=== PATIENT | female | born 1985 | race American Indian/Alaskan Native ===

== ENCOUNTER 2019-04-17 11:23 | Emergency (ER) | payer MEDICAID, OTHER ==
[2019-04-17 12:00] VITALS: BP 129/82
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
== END 2019-04-17 14:00 | disposition home or self-care (01) ==
LOC: ED 11:23
DX: M54.2 Cervicalgia (principal); M54.9 Dorsalgia, unspecified; Z79.899 Other long term (current) drug therapy; V49.59XA Passenger injured in collision with other motor vehicles in traffic accident, initial encounter; Y93.89 Activity, other specified; Y92.410 Unspecified street and highway as the place of occurrence of the external cause; Y99.8 Other external cause status